=== PATIENT | female | born 1970 | race Hispanic/Latino ===

== ENCOUNTER 2018-09-30 16:40 | Emergency (ER) | payer SELFPAY ==
[2018-09-30 17:01] VITALS: TEMP 98.5; O2SAT 99
[2018-09-30 18:17] LABS: PH,URINE 6.5 (4.7-8.0); URINE BILIRUBIN NEGATIVE (NEGATIVE); URINE BLOOD NEGATIVE (NEGATIVE); URINE GLUCOSE (UA) NEGATIVE (NEGATIVE); URINE LEUKOCYTE ESTERASE TRACE Leu/uL (NEGATIVE); URINE PROTEIN NEGATIVE mg/dL (<30 mg/dL); URINE UROBILINOGEN 0.2 E.U./dL (<1 E.U./dL)
[2018-09-30 18:22] LABS: URINE APPEARANCE CLEAR (CLEAR)
[2018-09-30 18:50] LABS: BASO # 0.01 K/mm3 (0.0-2.0); BASO % 0.1 % (0.0-3.0); EOS # 0.2 (0.0-0.7); EOS % 1.6 % (1.5-5.0); HEMOGLOBIN 14.5 g/dL (12.0-16.0); LYMPH # 2.6 (1.2-3.4); LYMPH % 22.9 % (22.0-35.0); MEAN CELL VOLUME 85.1 fl (80.0-105.0); MEAN CORPUSCULAR HEMOGLOBIN 28.8 pg (25.0-35.0); MEAN CORPUSCULAR HGB CONC 33.8 g/dl (31.0-37.0); MEAN PLATELET VOLUME 9.3 fl (7.0-11.0); MONO # 0.9 (0.1-0.6); MONO % 7.5 % (1.0-6.0); RBC 5.04 10^6/uL (3.5-6.1); RED CELL DISTRIBUTION WIDTH 12.8 % (11.5-14.5); WHITE BLOOD COUNT 11.5 10^3/uL (4.5-11.0)
[2018-09-30 19:04] LABS: ALB/GLOB RATIO 1.4 (1.1-1.8); ALBUMIN 4.7 g/dL (3.0-4.8); ALT/SGPT 13 U/L (7-56); AST/SGOT 18 U/L (14-36); BLOOD UREA NITROGEN 7 mg/dL (7-21); CALCIUM 9.7 mg/dL (8.4-10.5); GFR NON-AFRICAN AMERICAN > 60
[2018-09-30 19:11] LABS: BARBITURATES, UR NEGATIVE (NEGATIVE); BENZODIAZEPINES, UR NEGATIVE (NEGATIVE); OPIATES, UR NEGATIVE (NEGATIVE); PHENCYCLIDINE, UR NEGATIVE (NEGATIVE)
--- NOTE | 2018-09-30 19:14 | RAD ---
Date of service: 09/30/2018 HISTORY: dizziness COMPARISON: No prior. TECHNIQUE: Chest PA and lateral views FINDINGS: LUNGS: No active pulmonary disease. PLEURA: No significant pleural effusion identified. No pneumothorax apparent. CARDIOVASCULAR: No aortic atherosclerotic calcification present. Normal cardiac size. No pulmonary vascular congestion. OSSEOUS STRUCTURES: No significant abnormalities. VISUALIZED UPPER ABDOMEN: Normal. OTHER FINDINGS: None. IMPRESSION: No active disease.
[2018-09-30 19:18] LABS: FREE T4 1.59 ng/dL (0.78-2.19)
[2018-09-30 19:23] LABS: ACETAMINOPHEN < 10.0 ug/ml (10.0-20.0); SALICYLATE < 1 mg/dL (2.0-20.0)
--- NOTE | 2018-09-30 19:29 | CARD ---
APPROVED REPORT Date of service: 09/30/2018 EKG Measurement Heart [id number] <Conclusion> Normal sinus rhythm Biatrial enlargement Abnormal ECG
--- NOTE | 2018-09-30 20:27 | ED PDOC ---
Arrival/HPI - General Chief Complaint: Dizziness/Lightheaded Time Seen by Provider: 09/30/18 16:48 Past Medical History - Psychiatric Hx Anxiety: Yes Hx Substance Use: No Family/Social History Smoking Status: Never Smoked Hx Alcohol Use: No Hx Substance Use: No Allergies/Home Meds Allergies/Adverse Reactions: Allergies No Known Allergies Allergy (Verified 09/30/18 17:27) Physical Exam Vital Signs Temp Pulse Resp BP Pulse Ox 09/30/18 18:58 84 19 139/99 H 99 09/30/18 16:57 98.5 F 121 H 18 156/110 H 99 Medical Decision Making ED Course and Treatment: 09/30/18 20:24 Progress Notes Patient medically cleared. PES suspect artist supervisor called and will come to evaluate patient at the bedside. Signout given to Dr. Okeefe who will resume the patient's care. - Lab Interpretations Lab Results: Total Bilirubin 0.3 mg/dL (0.2-1.3) 09/30/18 18:30 AST 18 U/L (14-36) 09/30/18 18:30 ALT 13 U/L (7-56) 09/30/18 18:30 Alkaline Phosphatase 73 U/L (38-126) 09/30/18 18:30 Total Protein 8.0 g/dL (5.8-8.3) 09/30/18 18:30 Albumin 4.7 g/dL (3.0-4.8) 09/30/18 18:30 Globulin 3.4 gm/dL 09/30/18 18:30 Albumin/Globulin Ratio 1.4 (1.1-1.8) 09/30/18 18:30 Urine Color straw (YELLOW) 09/30/18 18:05 Urine Appearance Clear (CLEAR) 09/30/18 18:05 Urine pH 6.5 (4.7-8.0) 09/30/18 18:05 Ur Specific [place] 1.010 (1.005-1.035) 09/30/18 18:05 Urine Protein Negative mg/dL (<30 mg/dL) 09/30/18 18:05 Urine Glucose (UA) Negative mg/dL (NEGATIVE) 09/30/18 18:05 Urine Ketones Negative mg/dL (NEGATIVE) 09/30/18 18:05 Urine Blood Negative (NEGATIVE) 09/30/18 18:05 Urine Nitrate Negative (NEGATIVE) 09/30/18 18:05 Urine Bilirubin Negative (NEGATIVE) 09/30/18 18:05 Urine Urobilinogen 0.2 E.U./dL (<1 E.U./dL) 09/30/18 18:05 Ur Leukocyte Esterase Trace [place]/uL (NEGATIVE) H 09/30/18 18:05 Urine RBC TEST NOT PERFORMED 09/30/18 18:05 Urine WBC 5 - 10 /hpf (0-6) H 09/30/18 18:05 Ur Epithelial Cells 6 - 8 /hpf (0-5) H 09/30/18 18:05 - RAD Interpretation Radiology Orders: 09/30/18 17:28 CXR [CHEST TWO VIEWS (PA/LAT)] [RAD] Stat Disposition/Present on Arrival - Present on Arrival Any Indicators Present on Arrival: No History of DVT/PE: No History of Uncontrolled Diabetes: No Urinary Catheter: No History of Decub. Ulcer: No History Surgical Site Infection Following: None - Disposition Have Diagnosis and Disposition been Completed?: Yes Diagnosis: Anxiety Patient Problems: Current Active Problems Problem Status Onset Anxiety Acute Referrals: PCP,NO [Primary Care Provider] - Follow up with primary
--- NOTE | 2018-09-30 20:27 | ED PDOC ---
Arrival/HPI - General Chief Complaint: Dizziness/Lightheaded Time Seen by Provider: 09/30/18 16:48 Historian: Patient, Family - History of Present Illness Narrative History of Present Illness (Text): 09/30/18 20:23 Pt is a 48yo female with a PMH of anxiety and depression who presents to the ED complaining of anxiety and recently having a nervous breakdown around [facility]. Pt states she is depressed and anxious, has headache. Pt states she recently finalized her divorce. Denies suicidal/homicidal ideation, harming herself or hallucinations. Time/Duration: > week Symptom Onset: Gradual Symptom Course: Worsening Quality: Throbbing Severity Level: 6 Activities at Onset: Rest Context: Sitting Past Medical History - Psychiatric Hx Anxiety: Yes Hx Substance Use: No Family/Social History Family/Social History: CAD/CA, Neoplasm/Cancer Smoking Status: Never Smoked Hx Alcohol Use: No Hx Substance Use: No Allergies/Home Meds Allergies/Adverse Reactions: Allergies No Known Allergies Allergy (Verified 09/30/18 17:27) Review of Systems - Review of Systems Constitutional: Weight Change Eyes: Normal ENT: Normal Respiratory: Normal Cardiovascular: Normal Gastrointestinal: Normal Genitourinary Female: Normal Musculoskeletal: Normal Skin: Normal Neurological: Headache Endocrine: Normal Hemo/Lymphatic: Normal Psychiatric: Anxiety, Depression. absent: Suicidal Ideation Physical Exam Vital Signs Reviewed: Yes Vital Signs Temp Pulse Resp BP Pulse Ox 09/30/18 18:58 84 19 139/99 H 99 09/30/18 16:57 98.5 F 121 H 18 156/110 H 99 Temperature: Afebrile Blood Pressure: Normal Pulse: Regular Respiratory Rate: Normal Appearance: Positive for: Well-Appearing Mental Status: Positive for: Alert and Oriented X 3 - Systems Exam Head: Present: Atraumatic, Normocephalic Pupils: Present: PERRL Extroacular Muscles: Present: EOMI Mouth: Present: Moist Mucous Membranes Respiratory/Chest: Present: Clear to Auscultation, Good Air Exchange. No: Respiratory Distress, Accessory Muscle Use Cardiovascular: Present: Regular Rate and Rhythm, Normal S1, S2 Abdomen: Present: Normal Bowel Sounds. No: Tenderness, Distention Upper Extremity: Present: Normal Inspection Lower Extremity: Present: Normal Inspection Neurological: Present: GCS=15, CN II-XII Intact Skin: Present: Warm, Dry, Normal Color Psychiatric: Present: Alert, Oriented x 3, Anxious, Depressed Mood. No: Suicidal Ideation, Homicidal Ideation, Delusional, Hallucinations Medical Decision Making ED Course and Treatment: 09/30/18 20:30 CMP CBC UDS TSH, T4 Urinalysis, urine culture EKG CXR Pt seen, examined, assessment and plan discussed with Dr Jessica Norton PGY1 - Lab Interpretations Lab Results: Total Bilirubin 0.3 mg/dL (0.2-1.3) 09/30/18 18:30 AST 18 U/L (14-36) 09/30/18 18:30 ALT 13 U/L (7-56) 09/30/18 18:30 Alkaline Phosphatase 73 U/L (38-126) 09/30/18 18:30 Total Protein 8.0 g/dL (5.8-8.3) 09/30/18 18:30 Albumin 4.7 g/dL (3.0-4.8) 09/30/18 18:30 Globulin 3.4 gm/dL 09/30/18 18:30 Albumin/Globulin Ratio 1.4 (1.1-1.8) 09/30/18 18:30 Urine Color straw (YELLOW) 09/30/18 18:05 Urine Appearance Clear (CLEAR) 09/30/18 18:05 Urine pH 6.5 (4.7-8.0) 09/30/18 18:05 Ur Specific [place] 1.010 (1.005-1.035) 09/30/18 18:05 Urine Protein Negative mg/dL (<30 mg/dL) 09/30/18 18:05 Urine Glucose (UA) Negative mg/dL (NEGATIVE) 09/30/18 18:05 Urine Ketones Negative mg/dL (NEGATIVE) 09/30/18 18:05 Urine Blood Negative (NEGATIVE) 09/30/18 18:05 Urine Nitrate Negative (NEGATIVE) 09/30/18 18:05 Urine Bilirubin Negative (NEGATIVE) 09/30/18 18:05 Urine Urobilinogen 0.2 E.U./dL (<1 E.U./dL) 09/30/18 18:05 Ur Leukocyte Esterase Trace [place]/uL (NEGATIVE) H 09/30/18 18:05 Urine RBC TEST NOT PERFORMED 09/30/18 18:05 Urine WBC 5 - 10 /hpf (0-6) H 09/30/18 18:05 Ur Epithelial Cells 6 - 8 /hpf (0-5) H 09/30/18 18:05 - RAD Interpretation Radiology Orders: 09/30/18 17:28 CXR [CHEST TWO VIEWS (PA/LAT)] [RAD] Stat Disposition/Present on Arrival - Present on Arrival Any Indicators Present on Arrival: No History of DVT/PE: No History of Uncontrolled Diabetes: No Urinary Catheter: No History of Decub. Ulcer: No History Surgical Site Infection Following: None - Disposition Have Diagnosis and Disposition been Completed?: Yes Diagnosis: Anxiety, Adjustment disorder Disposition: HOME/ ROUTINE Disposition Time: 21:25 Patient Plan: Discharge Patient Problems: Current Active Problems Problem Status Onset Anxiety Acute Condition: GOOD Discharge Instructions (ExitCare): Adjustment Disorder, Anxiety, Adult (DC) Referrals: PCP,NO [Primary Care Provider] - Follow up with primary Forms: [employer] (Welsh)
--- NOTE | 2018-09-30 22:10 | ED PDOC ---
Physical Exam Vital Signs Reviewed: Yes Vital Signs Temp Pulse Resp BP Pulse Ox 09/30/18 18:58 84 19 139/99 H 99 09/30/18 16:57 98.5 F 121 H 18 156/110 H 99 Temperature: Afebrile Blood Pressure: Hypertensive Pulse: Regular Respiratory Rate: Normal Appearance: Positive for: Well-Appearing, Non-Toxic, Comfortable Pain Distress: None Mental Status: Positive for: Alert and Oriented X 3 Medical Decision Making ED Course and Treatment: 09/30/18 22:09 Patient endorsed to me by Dr Lopez pending PES evaluation. Patient is currently stable and has been cleared by PES help desk specialist for discharge, and outpatient followup. - Lab Interpretations Lab Results: Total Bilirubin 0.3 mg/dL (0.2-1.3) 09/30/18 18:30 AST 18 U/L (14-36) 09/30/18 18:30 ALT 13 U/L (7-56) 09/30/18 18:30 Alkaline Phosphatase 73 U/L (38-126) 09/30/18 18:30 Total Protein 8.0 g/dL (5.8-8.3) 09/30/18 18:30 Albumin 4.7 g/dL (3.0-4.8) 09/30/18 18:30 Globulin 3.4 gm/dL 09/30/18 18:30 Albumin/Globulin Ratio 1.4 (1.1-1.8) 09/30/18 18:30 Urine Color straw (YELLOW) 09/30/18 18:05 Urine Appearance Clear (CLEAR) 09/30/18 18:05 Urine pH 6.5 (4.7-8.0) 09/30/18 18:05 Ur Specific [place] 1.010 (1.005-1.035) 09/30/18 18:05 Urine Protein Negative mg/dL (<30 mg/dL) 09/30/18 18:05 Urine Glucose (UA) Negative mg/dL (NEGATIVE) 09/30/18 18:05 Urine Ketones Negative mg/dL (NEGATIVE) 09/30/18 18:05 Urine Blood Negative (NEGATIVE) 09/30/18 18:05 Urine Nitrate Negative (NEGATIVE) 09/30/18 18:05 Urine Bilirubin Negative (NEGATIVE) 09/30/18 18:05 Urine Urobilinogen 0.2 E.U./dL (<1 E.U./dL) 09/30/18 18:05 Ur Leukocyte Esterase Trace [place]/uL (NEGATIVE) H 09/30/18 18:05 Urine RBC TEST NOT PERFORMED 09/30/18 18:05 Urine WBC 5 - 10 /hpf (0-6) H 09/30/18 18:05 Ur Epithelial Cells 6 - 8 /hpf (0-5) H 09/30/18 18:05 - RAD Interpretation Radiology Orders: 09/30/18 17:28 CXR [CHEST TWO VIEWS (PA/LAT)] [RAD] Stat Disposition/Present on Arrival - Present on Arrival Any Indicators Present on Arrival: No History of DVT/PE: No History of Uncontrolled Diabetes: No Urinary Catheter: No History of Decub. Ulcer: No History Surgical Site Infection Following: None - Disposition Have Diagnosis and Disposition been Completed?: Yes Diagnosis: Anxiety, Adjustment disorder Disposition: HOME/ ROUTINE Disposition Time: 21:10 Condition: GOOD Discharge Instructions (ExitCare): Adjustment Disorder, Anxiety, Adult (DC) Referrals: PCP,NO [Primary Care Provider] - Follow up with primary Forms: [employer] (Polish)
[2018-10-01 02:21] VITALS: BP 142/95; PULSE 82; RESP 16
== END 2018-09-30 21:50 | disposition home or self-care (01) ==
LOC: ED 16:40
DX: F43.22 Adjustment disorder with anxiety (principal); Z82.49 Family history of ischemic heart disease and other diseases of the circulatory system
CPT/HCPCS: 71046; 80053; 81001; 84439; 84443; 85025; 87086; 90791; 93005; 99285; G0480